=== PATIENT | female | born 1945 | race Caucasian/White ===

== ENCOUNTER 2021-05-11 09:45 | Emergency (ER) | payer MEDICARE, OTHER ==
[2021-05-11] MEDS ORDERED: Sodium Chloride 0.9% 1,000 ML IV ONE (09:49)
[2021-05-11] MEDS ORDERED: Ondansetron 4 MG/2 ML SDV IVPUSH ONE (09:49)
[2021-05-11] MEDS ORDERED: Sodium Chloride 0.9% 10 ML Syringe FLUSH PRN (09:49)
[2021-05-11 10:29] LABS: ANION GAP 17.6 mmol/L (5-15); CHLORIDE,CL 95 mmol/L (98-107); SODIUM,NA 132 mmol/L (136-145)
[2021-05-11] MEDS ORDERED: Potassium Chloride 20 MEQ Tab.ER PO ONE (10:52)
[2021-05-11] MEDS ORDERED: Ondansetron 4 MG Tab.DIS PO ONE (11:59)
== END 2021-05-11 12:15 | disposition home or self-care (01) ==
LOC: KA.ED 09:45
DX: A08.4 Viral intestinal infection, unspecified (principal); E87.1 Hypo-osmolality and hyponatremia; E87.6 Hypokalemia; Z88.0 Allergy status to penicillin; Z79.899 Other long term (current) drug therapy; Z79.84 Long term (current) use of oral hypoglycemic drugs
CPT/HCPCS: 36415; 80053; 81001; 83690; 85025; 87086; 87088; 87186; 96374; 99284; 99284-25; A9270-GY; J2405; J3490; J7030

== ENCOUNTER 2021-05-12 19:00 | Observation (INO) | payer MEDICARE, OTHER ==
[2021-05-12] MEDS ORDERED: Sodium Chloride 0.9% 10 ML Syringe FLUSH PRN (19:15)
[2021-05-12] MEDS ORDERED: Sodium Chloride 0.9% 1,000 ML IV ONE (19:15)
[2021-05-12] MEDS ORDERED: Ondansetron 4 MG/2 ML SDV IVPUSH ONE (19:15)
[2021-05-12 20:02] LABS: ANION GAP 20.6 mmol/L (5-15); CHLORIDE,CL 98 mmol/L (98-107); SODIUM,NA 133 mmol/L (136-145)
[2021-05-12] MEDS ORDERED: Ondansetron 4 MG/2 ML SDV IVPUSH PRN (21:13)
[2021-05-12] MEDS: Sodium Chloride 0.9% 1,000 ML IV SCH (21:53)
[2021-05-13] MEDS: Levothyroxine 100 MCG Tab PO SCH ×2 (05:36→06:30)
[2021-05-13 08:25] LABS: ANION GAP 13.7 mmol/L (5-15); CHLORIDE,CL 106 mmol/L (98-107); SODIUM,NA 139 mmol/L (136-145)
[2021-05-13] MEDS ORDERED: Non-Formulary Medication 1 Each (Omeprazole [Omeprazole] 20 MG Capsule.Dr) PO SCH (09:00)
[2021-05-13] MEDS: Pantoprazole 40 MG Tab.CR PO SCH (09:34)
[2021-05-13] MEDS: Sodium Chloride 0.9% 1,000 ML IV SCH (09:34)
[2021-05-13] MEDS ORDERED: Potassium Chloride 20 MEQ Tab.ER PO ONE ×3 (10:00→12:00)
[2021-05-13] MEDS ORDERED: Sodium Chloride 0.9% 1,000 ML IV SCH (11:00)
[2021-05-13] MEDS: Nitrofurantoin Monohydrate/Macrocrystalline 100 MG Cap PO SCH ×2 (12:44→20:53)
[2021-05-14] MEDS: Levothyroxine 100 MCG Tab PO SCH (06:37)
[2021-05-14] MEDS: Pantoprazole 40 MG Tab.CR PO SCH (06:37)
[2021-05-14] MEDS: Loperamide 2 MG Cap PO PRN ×2 (06:53→09:32)
[2021-05-14] MEDS: Nitrofurantoin Monohydrate/Macrocrystalline 100 MG Cap PO SCH (08:07)
[2021-05-14 08:17] LABS: ANION GAP 16.5 mmol/L (5-15); CHLORIDE,CL 105 mmol/L (98-107); SODIUM,NA 140 mmol/L (136-145)
[2021-05-14] MEDS ORDERED: Potassium Chloride 20 MEQ Tab.ER PO ONE (08:45)
[2021-05-14] MEDS ORDERED: Nystatin Topical Powder 15 GM Bottle TOP SCH (11:30)
== END 2021-05-14 12:20 | disposition home or self-care (01) ==
LOC: KA.ED 19:00 → KA.MS 20:12 → UNDOADMOB 20:40
PROVIDERS: ADMIT Physician Assistant Medical; ATTEND Nurse Practitioner Family
DX: K52.9 Noninfective gastroenteritis and colitis, unspecified (principal); E87.6 Hypokalemia; I10 Essential (primary) hypertension; E78.5 Hyperlipidemia, unspecified; E11.9 Type 2 diabetes mellitus without complications; E03.9 Hypothyroidism, unspecified; N39.0 Urinary tract infection, site not specified; R35.0 Frequency of micturition; K21.9 Gastro-esophageal reflux disease without esophagitis; J31.0 Chronic rhinitis; M85.80 Other specified disorders of bone density and structure, unspecified site; E66.9 Obesity, unspecified; Z68.33 Body mass index [BMI] 33.0-33.9, adult; Z98.890 Other specified postprocedural states; Z20.822 Contact with and (suspected) exposure to COVID-19
CPT/HCPCS: 36415; 80048; 80053; 83690; 83735; 84100; 85025; 86140; 96374; 99284; 99285-25; A9270-GY; G0378; J2405; J3490; J7030; U0002